=== PATIENT | female | born 1965 | race Caucasian/White ===

== ENCOUNTER 2024-05-05 14:39 | Emergency (ER) | payer MEDICAID ==
[~2024-05-05] VITALS: Ht 165.1 cm; Wt 68.0 kg
[2024-05-05 14:42] VITALS: PULSE 92; O2SAT 96
[2024-05-05 15:03] VITALS: BP 169/97; RESP 16; TEMP 98.9; O2SAT 99
[2024-05-05] MEDS ORDERED: TOPUD MT (15:40)
[2024-05-05] MEDS ORDERED: DEXT30SU17 MT (15:40)
[2024-05-05] MEDS ORDERED: IBUP-1523 MT (15:40)
[2024-05-05] MEDS ORDERED: AZIT250T12 MT (15:40)
== END 2024-05-05 15:53 | disposition home or self-care (01) ==
LOC: ER 15:11
DX: J20.9 Acute bronchitis, unspecified (principal); Z88.0 Allergy status to penicillin; Z20.822 Contact with and (suspected) exposure to COVID-19
CPT/HCPCS: 87426; 87804; 99283